=== PATIENT | female | born 1985 | race Asian ===

== ENCOUNTER 2025-04-02 23:43 | Emergency (ER) | payer SELFPAY ==
[~2025-04-02] VITALS: Ht 165.1 cm; Wt 68.0 kg
[2025-04-03] VITALS: O2SAT 100
[2025-04-03] MEDS ORDERED: ACYC200C31 MT (00:10)
[2025-04-03] MEDS ORDERED: MUPI15CR11 TP (00:10)
[2025-04-03 00:31] VITALS: BP 121/77; PULSE 94; RESP 13; TEMP 37.1; O2SAT 99
== END 2025-04-03 00:33 | disposition home or self-care (01) ==
LOC: ER 23:43
DX: B00.1 Herpesviral vesicular dermatitis (principal); B00.9 Herpesviral infection, unspecified; L01.00 Impetigo, unspecified
CPT/HCPCS: 99283